=== PATIENT | male | born 1995 | race Caucasian/White ===

== ENCOUNTER 2019-05-05 16:48 | Outpatient (CLI) | payer OTHER | END 2019-05-05 18:00 | disposition home or self-care (01) | LOC: LAB 16:48 | DX: M54.5 Low back pain (principal); S82.62XA Displaced fracture of lateral malleolus of left fibula, initial encounter for closed fracture; M79.672 Pain in left foot; Z76.89 Persons encountering health services in other specified circumstances; D64.89 Other specified anemias; E88.89 Other specified metabolic disorders; D68.8 Other specified coagulation defects; N39.0 Urinary tract infection, site not specified; Z22.322 Carrier or suspected carrier of Methicillin resistant Staphylococcus aureus ==

== ENCOUNTER 2019-05-08 06:12 | Day surgery (SDC) | payer OTHER | END 2019-05-08 12:35 | disposition home or self-care (01) | LOC: CIR.AMB 06:12 | DX: S82.62XA Displaced fracture of lateral malleolus of left fibula, initial encounter for closed fracture (principal); S92.192A Other fracture of left talus, initial encounter for closed fracture; S93.492A Sprain of other ligament of left ankle, initial encounter ==

== ENCOUNTER 2019-05-13 14:48 | Outpatient (CLI) | payer OTHER | END 2019-05-13 14:51 | disposition home or self-care (01) | LOC: RAD 14:48 | DX: S82.62XA Displaced fracture of lateral malleolus of left fibula, initial encounter for closed fracture (principal) ==

== ENCOUNTER 2019-06-17 11:10 | Outpatient (CLI) | payer OTHER | END 2019-06-17 11:18 | disposition home or self-care (01) | LOC: RAD 11:10 | DX: M25.572 Pain in left ankle and joints of left foot (principal) ==